=== PATIENT | female | born 1995 | race Caucasian/White ===

== ENCOUNTER 2021-12-17 05:26 | Observation (INO) | payer OTHER ==
[~2021-12-17] VITALS: Ht 172.7 cm; Wt 117.9 kg
[2021-12-17 09:56] LABS: CLARITY URINE CLEAR (CLEAR); COLOR URINE YELLOW (YELLOW); KETONES URINE TRACE (NEGATIVE); LEUKOCYTE ESTERASE URINE TRACE (NEGATIVE); NITRITE URINE NEGATIVE (NEGATIVE); OCCULT BLOOD URINE 3+ (NEGATIVE); PH URINE 5.5 (4.5-8.0); PROTEIN URINE TRACE (NEGATIVE); SPECIFIC GRAVITY URINE 1.021 (1.005-1.030)
[2021-12-17] MEDS ORDERED: LACTATED RINGERS 1,000 ML IV SCH (12:00)
== END 2021-12-17 12:05 | disposition home or self-care (01) ==
LOC: 8 EST LDRP 05:26
PROVIDERS: ADMIT Obstetrics & Gynecology; ATTEND Obstetrics & Gynecology
DX: O46.93 Antepartum hemorrhage, unspecified, third trimester (principal); O36.8130 Decreased fetal movements, third trimester, not applicable or unspecified; Z3A.35 35 weeks gestation of pregnancy
CPT/HCPCS: 59025; 76805; 76817; 76818; 81003; 96360; 96361; G0378; 99281; J7120; G0379